=== PATIENT | female | born 1965 | race American Indian/Alaskan Native ===

== ENCOUNTER 2021-02-18 07:43 | Observation (INO) | payer BC ==
[2021-02-18] MEDS ORDERED: ASPIRIN EC 325 MG TAB PO ONE (08:18)
[2021-02-18 08:34] LABS: Basophils # (Auto) 0.1 K/mm3 (0.0-0.1); Basophils % (Auto) 1.3 % (0.0-1.8); Eosinophils # (Auto) 0.2 K/mm3 (0.0-0.4); Eosinophils % (Auto) 3.2 % (0.0-4.3); Hematocrit 36.8 % (30.3-42.9); Hemoglobin 12.5 gm/dl (10.1-14.3); Lymphocytes # (Auto) 2.2 K/mm3 (1.2-5.4); Lymphocytes % (Auto) 31.2 % (13.4-35.0); Mean Corpuscular HGB Conc 34 % (30-34); Mean Corpuscular Volume 92 fl (79-97); Monocytes # (Auto) 0.5 K/mm3 (0.0-0.8); Monocytes % (Auto) 6.7 % (0.0-7.3); Platelet Count 328 K/mm3 (140-440); Red Blood Count 4.01 M/mm3 (3.65-5.03); Red Cell Distribution Width 14.1 % (13.2-15.2)
[2021-02-18] MEDS ORDERED: HEPARIN/NS 5000 UNIT/500ML 1,000 ML IR ONE (08:43)
[2021-02-18] MEDS ORDERED: NITROGLYCERIN SYRINGE 3 ML ONE (08:43)
[2021-02-18] MEDS ORDERED: LIDOCAINE (2%) 20 MG/1 ML VIAL 20 ML MDV INFILTRATI ONE (08:43)
[2021-02-18] MEDS ORDERED: VERAPAMIL 5 MG/2 ML INJ ONE (08:43)
[2021-02-18 08:52] LABS: Blood Urea Nitrogen 13 mg/dL (7-17); Calcium 8.8 mg/dL (8.4-10.2); Hemolysis Index 615
[2021-02-18] MEDS ORDERED: SODIUM CHLORIDE 0.9% 500 ML 500 ML IV SCH (09:00)
[2021-02-18 09:10] LABS: BUN/Creatinine Ratio 22
[2021-02-18 09:13] LABS: INR 0.88 (0.87-1.13)
[2021-02-18 10:07] LABS: Blood Urea Nitrogen 12 mg/dL (7-17); Hemolysis Index 35
[2021-02-18 10:10] LABS: BUN/Creatinine Ratio 20
[2021-02-18] MEDS ORDERED: HEPARIN/NS 5000 UNIT/500ML 500 ML IR ONE (11:17)
[2021-02-18] MEDS: MIDAZOLAM 2 MG/2 ML INJ ONE ×2 (11:23→11:47)
[2021-02-18] MEDS: fentaNYL 100 MCG/2 ML INJ ONE ×2 (11:24→11:47)
--- NOTE | 2021-02-18 11:25 | Electrocardiograph Report ---
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
[2021-02-18] MEDS: HEPARIN 10,000 UNITS/10 ML VIAL ONE ×4 (11:48→12:34)
[2021-02-18] MEDS ORDERED: CLOPIDOGREL 300 MG TAB ONE (12:13)
[2021-02-18] MEDS ORDERED: ALUM-MAG HYDROXIDE-SIMETHICONE 200-200-20MG/5ML ORAL LIQD 30 ML ONE (12:14)
[2021-02-18] MEDS ORDERED: CLOPIDOGREL 75 MG TAB ONE (12:15)
[2021-02-18] MEDS ORDERED: traMADol 50 MG TAB PO PRN (12:41)
[2021-02-18] MEDS ORDERED: ACETAMINOPHEN 325 MG TAB PO PRN (12:41)
[2021-02-18] MEDS ORDERED: ZOLPIDEM 5 MG TAB PO PRN (12:41)
[2021-02-18] MEDS ORDERED: ONDANSETRON 4 MG/2 ML INJ IV PRN (12:41)
--- NOTE | 2021-02-18 12:43 | Cardiac Catherization Report ---
CORONARY ANGIOPLASTY REPORT REASON FOR PROCEDURE: The patient is a 55-year-old woman with chest pain, who underwent a cardiac catheterization at an outside hospital, which revealed 75-80% stenosis of the mid LAD at the origin of a medium sized diagonal branch. She was referred for coronary intervention. PROCEDURES: 1. Coronary angioplasty and stenting of the mid left anterior descending artery. 2. Sedation time, start 11:37, end 12:12. DESCRIPTION OF PROCEDURE: The patient was prepped and draped in a sterile fashion after informed consent. The right radial cath site was prepped and draped after a negative Nick's test. The right radial artery was entered using Seldinger technique followed by placement of a 6-Swedish hydrophilic sheath. Routine radial cocktail was administered via the sheath. We selected a #3.5 left Etelvina guiding catheter and advanced to the left coronary ostium. Pre-intervention angiograms were taken. A 0.014 inch Instructional Coordinator 50 guidewire was directed across the lesional segment into the LAD. Another, Instructional Coordinator 50 guidewire was directed into the mid diagonal branch. In a primary stenting maneuver, we deployed a 3.5 x 18 mm Resolute drug-eluting stent, across the lesional segment into the mid LAD. The stent was deployed to optimal pressures. Following stenting, there was an excellent angiographic result, 0 residual stenosis and [place] 3 flow was maintained into both LAD and diagonal branches. There was no significant ostial compromise of the diagonal branch. The wires and the catheters were removed, sheath removed, hemostasis achieved using a TR band. The patient was returned to the postprocedure unit in stable condition. There were no complications. The patient was returned to the postprocedure unit in stable condition. There were no complications. CONCLUSION: Successful coronary angioplasty and stenting of the mid LAD, excellent angiographic result following implantation of a 3.5 mm drug-eluting stent. JOB# [id number] ROBERTO/NICHOLAS
[2021-02-18] MEDS ORDERED: NON-FORMULARY EACH (Amlodipine Besylate [Norvasc] 2.5 MG Tablet) PO SCH (12:45)
[2021-02-18] MEDS ORDERED: SODIUM CHLORIDE 0.9% 1000 ML 1,000 ML IV SCH (12:48)
--- NOTE | 2021-02-18 12:57 | Event Note ---
Date: 02/18/21 The patient underwent coronary angioplasty and stenting of the mid LAD, with successful implantation of a 3.5 x 18 mm drug-eluting stent, excellent angiographic result, no complications. Post intervention, she will be observed for 23 hours, anticipate discharge in the morning on guideline directed medical therapy including dual oral antiplatelet therapy.
[2021-02-18] MEDS ORDERED: BISOPROLOL PO SCH (14:00)
[2021-02-18] MEDS ORDERED: HCTZ 6.25 MG PO SCH (14:00)
[2021-02-18] MEDS: amLODIPine 5 MG TAB PO SCH (14:23)
[2021-02-18] MEDS: LISINOPRIL 20 MG TAB PO SCH (18:02)
[2021-02-18] MEDS: INSULIN REGULAR, HUMAN 100 UNITS/1 ML SUB-Q SCH ×2 (18:09→23:40)
[2021-02-18] MEDS ORDERED: ACETAMINOPHEN 500 MG TAB PO PRN (19:25)
[2021-02-19 07:49] VITALS: BP 128/65
[2021-02-19 07:54] LABS: Basophils % (Auto) 0.6 % (0.0-1.8); Eosinophils % (Auto) 2.9 % (0.0-4.3); Hematocrit 32.6 % (30.3-42.9); Hemoglobin 10.9 gm/dl (10.1-14.3); Lymphocytes # (Auto) 2.9 K/mm3 (1.2-5.4); Lymphocytes % (Auto) 32.2 % (13.4-35.0); Mean Corpuscular HGB Conc 33 % (30-34); Mean Corpuscular Volume 93 fl (79-97); Monocytes % (Auto) 8.4 % (0.0-7.3); Platelet Count 300 K/mm3 (140-440); Red Blood Count 3.49 M/mm3 (3.65-5.03); Red Cell Distribution Width 14.2 % (13.2-15.2)
[2021-02-19 07:55] LABS: Basophils # (Auto) 0.1 K/mm3 (0.0-0.1); Eosinophils # (Auto) 0.3 K/mm3 (0.0-0.4); Monocytes # (Auto) 0.7 K/mm3 (0.0-0.8)
--- NOTE | 2021-02-19 08:03 | XRay Report ---
CHEST 1 VIEW INDICATION: post pci. COMPARISON: None FINDINGS: Support devices: None. Heart: Borderline heart size. Lungs/Pleura: The lungs are clear with no evidence for infiltrate, pleural fluid or pneumothorax. Additional findings: Moderate thoracolumbar scoliosis. IMPRESSION: No acute findings. Signer Name: Rasta Hussein Jr, MD Signed: 02/19/2021 7:58 AM Workstation Name: [id number]
[2021-02-19] MEDS: INSULIN REGULAR, HUMAN 100 UNITS/1 ML SUB-Q SCH (08:06)
[2021-02-19 08:43] LABS: BUN/Creatinine Ratio 20; Blood Urea Nitrogen 12 mg/dL (7-17); Calcium 8.6 mg/dL (8.4-10.2); Hemolysis Index 0
--- NOTE | 2021-02-19 09:32 | Short Stay Summary ---
Short Stay Documentation Date of service: 02/19/21 - History H&P: obtained from office - Allergies and Medications Current Medications: Allergies No Known Allergies Allergy (Verified 02/28/14 14:06) Home Medications Medication Instructions Recorded Confirmed Last Taken Type Amlodipine Besylate [Norvasc] 5 mg PO DAILY 02/28/14 02/18/21 02/18/21 08:15 History 5 mg Bisoprolol/Hydrochlorothiazide 1 tab PO DAILY 02/28/14 02/18/21 02/16/21 History [Bisoprolol-Hctz 5-6.25 mg Tab] 1 tab Omeprazole [PriLOSEC] 1 tab PO DAILY 02/28/14 02/18/21 02/16/21 History 40 mg metHOTREXate(DOSE WEEKLY ONLY) 7 tab PO 1XW 02/28/14 02/18/21 02/15/21 History [Methotrexate] 2.5 B-12 Compliance 1,000 mcg PO DAILY 02/18/21 02/18/21 02/16/21 History 1 tab Cholecalciferol (Vitamin D3) 2,000 mcg PO DAILY 02/18/21 02/18/21 02/16/21 History [Vitamin D3 2,000 UNIT CAP] 1 tab Clopidogrel [Plavix] 75 mg PO QDAY 02/18/21 02/18/21 02/18/21 History 75 mg Dulaglutide [Trulicity] 1 1000units SQ 1XW 02/18/21 02/18/21 02/15/21 History Ibuprofen [Motrin] 600 mg PO Q8H PRN 02/18/21 02/18/21 02/16/21 History 1 tab Insulin Glargine,Hum.rec.anlog 100 unit SQ DAILY 02/18/21 02/18/21 02/15/21 Hi story [Basaglar Kwikpen U-100] Linaclotide [Linzess] 1 cap PO DAILY 02/18/21 02/18/21 02/16/21 History 145 mcg Loratadine [Allergy Relief] 10 mg PO DAILY 02/18/21 02/18/21 02/14/21 History 10 mg lisinopriL [Lisinopril] 20 mg PO DAILY 02/18/21 02/18/21 02/16/21 History 20 mg Active Medications Acetaminophen (Acetaminophen 500 Mg Tab) 1,000 mg PO Q6H PRN PRN Reason: Pain, Mild (1-3) Last Admin: 02/18/21 19:57 Dose: 1,000 mg Documented by: Amlodipine Besylate (Amlodipine 5 Mg Tab) 5 mg PO QDAY [facility] Last Admin: 02/18/21 14:23 Dose: Not Given Documented by: Aspirin (Aspirin Ec 325 Mg Tab) 325 mg PO QDAY [facility] Atorvastatin Calcium (Atorvastatin 40 Mg Tab) 40 mg PO QHS [facility] Last Admin: 02/18/21 22:13 Dose: 40 mg Documented by: Bisoprolol Fumarate (Bisoprolol 5 Mg/Hctz 6.25 Mg Tab) 1 each PO DAILY [facility] Last Admin: 02/18/21 18:33 Dose: 1 each Documented by: Clopidogrel Bisulfate (Clopidogrel 75 Mg Tab) 75 mg PO QDAY [facility] Sodium Chloride (Nacl 0.9% 1000 Ml) 1,000 mls @ 100 mls/hr IV DIRECT CAITLIN Stop: 02/19/21 12:47 Last Admin: 02/18/21 18:01 Dose: 100 mls/hr Documented by: Insulin Human Regular (Insulin Regular, Human 100 Units/1 Ml) 0 units SUB-Q ACHS [facility]; Protocol Last Admin: 02/18/21 23:40 Dose: Not Given Documented by: Isosorbide Mononitrate (Isosorbide Mononitrate Er 30 Mg Tab) 30 mg PO QDAY [facility] Last Admin: 02/18/21 14:22 Dose: 30 mg Documented by: Lisinopril (Lisinopril 20 Mg Tab) 20 mg PO DAILY [facility] Last Admin: 02/18/21 18:02 Dose: 20 mg Documented by: Ondansetron HCl (Ondansetron 4 Mg/2 Ml Inj) 4 mg IV Q8H PRN PRN Reason: N/V unrelieved by Reglan Tramadol HCl (Tramadol 50 Mg Tab) 50 mg PO Q4H PRN PRN Reason: Pain, Mild (1-3) Last Admin: 02/18/21 14:22 Dose: 50 mg Documented by: Zolpidem Tartrate (Zolpidem 5 Mg Tab) 5 mg PO QHS PRN PRN Reason: Sleep - Physical exam General appearance: no acute distress HEENT: PERRLA Lungs: Clear to auscultation Heart: Regular rate, Normal S1, Normal S2 - Brief post op/procedure progress note Procedure: The patient underwent coronary angioplasty and stenting of the mid LAD, with successful implantation of a 3.5 x 18 mm drug-eluting stent, excellent angiographic result, no complications. Condition: stable - Hospital course Hospital course: Post intervention, patient was admitted for overnight observation. On telemetry there was transient AV block seen during hours of sleep. Patient remained asymptomatic. Patient denies a history of sleep apnea. On discharge will continue guideline directed medical therapy including dual oral antiplatelet therapy for coronary artery disease. As an outpatient will recommend pulmonary evaluation and workup for sleep apnea. - Disposition Condition at discharge: Good Disposition: DC-01 TO HOME OR SELFCARE Short Stay Discharge Plan Weight Bearing Status: Full Weight Bearing Diet: low fat, low cholesterol, low salt, diabetic Wound: open to air, keep clean and dry Follow up with: PAULINO HERNANDEZ MD [Primary Care Provider] - 7 Days ALLY CARRANZA MD [Staff Physician] - 7 Days Forms: [facility] PCI D/C Instructions Prescriptions: AtorvaSTATin [Lipitor] 40 mg PO QHS #30 tablet Aspirin [Adult Aspirin] 81 mg PO QDAY #30 tablet. ISOSORBIDE MONOnitrate [Imdur ER] 30 mg PO QDAY #30 tablet Clopidogrel [Plavix] 75 mg PO QDAY #30
--- NOTE | 2021-02-19 09:53 | Electrocardiograph Report ---
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
--- NOTE | 2021-02-19 09:58 | Electrocardiograph Report ---
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
[2021-02-19] MEDS ORDERED: CLOPIDOGREL 75 MG TAB PO SCH (10:00)
[2021-02-19] MEDS ORDERED: ASPIRIN EC 325 MG TAB PO SCH (10:00)
[2021-02-19] MEDS: LISINOPRIL 20 MG TAB PO SCH (11:01)
[2021-02-19] MEDS: amLODIPine 5 MG TAB PO SCH (11:01)
== END 2021-02-19 12:08 | disposition home or self-care (01) ==
LOC: CATHLABREC 07:43 → 4A 12:40
PROVIDERS: ADMIT Internal Medicine Cardiovascular Disease; ATTEND Internal Medicine Cardiovascular Disease
DX: I20.0 Unstable angina (principal); E66.09 Other obesity due to excess calories; Z79.899 Other long term (current) drug therapy; Z68.31 Body mass index [BMI] 31.0-31.9, adult
CPT/HCPCS: 36415; 71045; 80048; 82962; 84484; 85025; 85610; 85730; 93005; 96360; 96361; 96372; A9270; C1769; C1874; C1887; C1894; C9600; G0378; J1644; J2250; J3010; J7030; J7040; 92928; J1815; Q9967